=== PATIENT | female | born 1950 | race Caucasian/White ===

== ENCOUNTER 2018-02-02 14:20 | Emergency (ER) | payer MEDICARE, MEDICAID ==
[~2018-02-02] VITALS: Ht 157.5 cm; Wt 76.0 kg
[~2018-02-02 14:20] MED LIST: ATOR10TA PO; HYDR-569 PO; PHEN-716 PO; TRAZ-143 PO
[2018-02-02 15:18] LABS: BASOPHILS % (AUTO) 0.4 % (0-1); EOSINOPHILS # (AUTO) 0.2 X10'3 (0-0.9); EOSINOPHILS % (AUTO) 2.8 % (0-6); HEMATOCRIT 35.2 % (35.0-45.0); HEMOGLOBIN 12.3 g/dl (12.0-16.0); LYMPHOCYTES # (AUTO) 2.6 X10'3 (1.1-4.8); LYMPHOCYTES % (AUTO) 38.7 % (21-51); MEAN CORPUSCULAR HEMOGLOBIN 31.2 PG (27.0-31.0); MEAN CORPUSCULAR HGB CONC 34.9 % (33.0-36.5); MEAN CORPUSCULAR VOLUME 89.2 FL (78-98); MEAN PLATELET VOLUME 7.9 FL (7.4-10.4); MONOCYTES # (AUTO) 0.6 X10'3 (0-0.9); MONOCYTES % (AUTO) 8.3 % (2-12); NEUTROPHILS # (AUTO) 3.3 X10'3 (1.8-7.7); NEUTROPHILS % (AUTO) 49.8 % (42-75); PLATELET COUNT 251 X10'3 (140-440); RED BLOOD COUNT 3.95 X10'6 (4.20-5.60); RED CELL DISTRIBUTION WIDTH 12.9 % (11.5-14.5); WHITE BLOOD COUNT 6.7 X10'3 (4.5-11.0)
[2018-02-02] MEDS ORDERED: ipratropium/albuterol 3ml nebule NEB ONE (15:20)
[2018-02-02 15:32] LABS: D-DIMER 0.45 MG/L FEU (0-0.50)
[2018-02-02 15:46] LABS: ALANINE AMINOTRANSFERASE 25 U/L (12-78); ALBUMIN 3.6 G/DL (3.4-5.0); ALBUMIN/GLOBULIN RATIO 0.9 (1.1-1.5); ALKALINE PHOSPHATASE 87 IU/L (46-116); ANION GAP 10 (8-16); ASPARTATE AMINO TRANSFERASE 16 U/L (10-37); BILIRUBIN,TOTAL 0.4 MG/DL (0.1-1.0); BLOOD UREA NITROGEN 17 MG/DL (7-18); BUN/CREATININE RATIO 15.9 (6.6-38.0); CALCIUM 8.9 MG/DL (8.5-10.1); CHLORIDE 104 MMOL/L (99-107); CREATININE 1.07 MG/DL (0.40-0.90); GLUCOSE 119 MG/DL (70-104); POTASSIUM 3.7 MMOL/L (3.5-5.1); SODIUM 141 MMOL/L (135-145); TOTAL CARBON DIOXIDE 26.8 MMOL/L (24-32); TOTAL PROTEIN 7.8 G/DL (6.4-8.2); eGFR 51 ML/MIN
[2018-02-02] MEDS ORDERED: BENZ-38 PO (16:09)
[2018-02-02] MEDS ORDERED: PRED20TA PO (16:09)
[2018-02-02] MEDS ORDERED: predniSONE 20 mg tablet PO ONE (16:10)
[2018-02-02] MEDS ORDERED: LORazepam 1 MG tablet PO ONE (16:15)
[2018-02-02 16:36] VITALS: BP 131/79
== END 2018-02-02 16:39 | disposition home or self-care (01) ==
LOC: ER 14:20
DX: J44.1 Chronic obstructive pulmonary disease with (acute) exacerbation (principal); F17.210 Nicotine dependence, cigarettes, uncomplicated; Z90.49 Acquired absence of other specified parts of digestive tract; Z90.710 Acquired absence of both cervix and uterus; Z88.2 Allergy status to sulfonamides; Z56.0 Unemployment, unspecified
CPT/HCPCS: 36415; 71045; 80053; 83880; 85025; 85379; 94760; 99285; J7512

== ENCOUNTER 2019-04-17 10:52 | Emergency (ER) | payer MEDICARE, MEDICAID ==
[~2019-04-17] VITALS: Ht 157.5 cm; Wt 75.0 kg
[~2019-04-17 10:52] MED LIST changes: +CEPH500C5 PO; +HYDR-4383 PO; -HYDR-569 PO; +PANT-47 PO; -TRAZ-143 PO; +TRAZ-251 PO
[2019-04-17] MEDS ORDERED: famotidine/PF 10 mg/ml inj IV ONE (12:05)
[2019-04-17] MEDS ORDERED: normal saline 1000ML IV soln IVB ONE (12:05)
--- NOTE | 2019-04-17 12:18 | NUR ---
To CT via WC.
[2019-04-17 12:20] LABS: CLARITY,URINE SLIGHTLY CLOUDY (Clear); COLOR,URINE STRAW (Yellow); GLUCOSE, URINE NEGATIVE (Neg); KETONES,URINE NEGATIVE (Neg); LEUKOCYTE ESTERASE ,URINE NEGATIVE (Neg); NITRITES, URINE NEGATIVE (Neg); OCCULT BLOOD,URINE TRACE-INTACT (Neg); PH,URINE 5.5 (4.8-8.0); PROTEIN,URINE NEGATIVE (Neg); UA COLLECTION TYPE CLN CATCH MIDSTREAM; UROBILINOGEN,URINE 0.2 E.U/dL (0.2-1.0)
[2019-04-17 12:24] LABS: BASOPHILS # (AUTO) 0.1 X10'3 (0-0.2); BASOPHILS % (AUTO) 0.9 % (0-1); EOSINOPHILS # (AUTO) 0.1 X10'3 (0-0.9); EOSINOPHILS % (AUTO) 1.5 % (0-6); HEMATOCRIT 37.9 % (35.0-45.0); HEMOGLOBIN 12.8 g/dl (12.0-16.0); LYMPHOCYTES # (AUTO) 2.4 X10'3 (1.1-4.8); LYMPHOCYTES % (AUTO) 42.2 % (21-51); MEAN CORPUSCULAR HEMOGLOBIN 29.7 PG (27.0-31.0); MEAN CORPUSCULAR HGB CONC 33.8 g/dL (33.0-36.5); MEAN CORPUSCULAR VOLUME 87.7 FL (78-98); MEAN PLATELET VOLUME 9.1 FL (7.4-10.4); MONOCYTES # (AUTO) 0.4 X10'3 (0-0.9); MONOCYTES % (AUTO) 7.7 % (2-12); NEUTROPHILS # (AUTO) 2.7 X10'3 (1.8-7.7); NEUTROPHILS % (AUTO) 47.7 % (42-75); PLATELET COUNT 198 X10'3 (140-440); RED BLOOD COUNT 4.33 X10'6 (4.20-5.60); RED CELL DISTRIBUTION WIDTH 13.2 % (11.5-14.5); WHITE BLOOD COUNT 5.7 X10'3 (4.5-11.0)
[2019-04-17 12:34] LABS: SQUAMOUS EPITHELIAL CELL,UR MODERATE /LPF (FEW)
[2019-04-17 12:35] LABS: WBC,URINE 0-4 /HPF (0-4)
[2019-04-17 12:36] LABS: BACTERIA,URINE NONE SEEN /HPF (Neg); RBC,URINE 0-2 /HPF (0-2)
[2019-04-17 12:39] LABS: ALANINE AMINOTRANSFERASE 19 U/L (12-78); ALBUMIN 3.8 G/DL (3.4-5.0); ALBUMIN/GLOBULIN RATIO 1.2 (1.1-1.5); ALKALINE PHOSPHATASE 81 IU/L (46-116); ANION GAP 6 (8-16); ASPARTATE AMINO TRANSFERASE 18 U/L (10-37); BILIRUBIN,TOTAL 0.4 MG/DL (0.1-1.0); BLOOD UREA NITROGEN 18 MG/DL (7-18); BUN/CREATININE RATIO 15.1 (6.6-38.0); CHLORIDE 107 MMOL/L (99-107); CREATININE 1.19 MG/DL (0.40-0.90); GLUCOSE 94 MG/DL (70-104); LIPASE 106 U/L (73-393); POTASSIUM 3.8 MMOL/L (3.5-5.1); SODIUM 139 MMOL/L (135-145); TOTAL CARBON DIOXIDE 25.9 MMOL/L (24-32); eGFR 45 ML/MIN
[2019-04-17] MEDS ORDERED: mag hydrox/Alum hydrox/simeth 30ml oral suspension PO ONE (13:10)
[2019-04-17] MEDS ORDERED: LIDOcaine Viscous 15ml cup PO ONE (13:10)
[2019-04-17] MEDS ORDERED: ondansetron 4mg rapidly disintigrating tab PO STA (13:10)
[2019-04-17] MEDS ORDERED: FAMO-128 PO (13:50)
[2019-04-17] MEDS ORDERED: SUCR1TAB34 PO (13:50)
[2019-04-17 14:11] VITALS: BP 137/73
== END 2019-04-17 14:13 | disposition home or self-care (01) ==
LOC: ER 10:52
DX: R10.13 Epigastric pain (principal); Z90.49 Acquired absence of other specified parts of digestive tract; Z90.710 Acquired absence of both cervix and uterus; Z88.5 Allergy status to narcotic agent; Z88.2 Allergy status to sulfonamides; Z79.899 Other long term (current) drug therapy; Z56.0 Unemployment, unspecified
CPT/HCPCS: 36415; 74176; 80053; 81001; 83690; 85025; 93005; 96374; 99284; J3490; J7030

== ENCOUNTER 2022-05-01 20:15 | Emergency (ER) | payer MEDICARE, MEDICAID ==
[~2022-05-01] VITALS: Ht 157.5 cm; Wt 59.0 kg
[~2022-05-01 20:15] MED LIST changes: -CEPH500C5 PO; +FAMO-128 PO; +SUCR1TAB34 PO
[2022-05-01 21:13] LABS: BASOPHILS % (AUTO) 0.4 % (0-1); EOSINOPHILS % (AUTO) 0.7 % (0-6); HEMATOCRIT 34.1 % (35.0-45.0); HEMOGLOBIN 11.6 g/dl (12.0-16.0); LYMPHOCYTES # (AUTO) 0.7 X10'3 (1.1-4.8); LYMPHOCYTES % (AUTO) 12.8 % (21-51); MEAN CORPUSCULAR HEMOGLOBIN 30.7 PG (27.0-31.0); MEAN CORPUSCULAR HGB CONC 33.9 g/dL (33.0-36.5); MEAN CORPUSCULAR VOLUME 90.5 FL (78-98); MEAN PLATELET VOLUME 9.6 FL (7.4-10.4); MONOCYTES # (AUTO) 0.8 X10'3 (0-0.9); MONOCYTES % (AUTO) 13.9 % (2-12); NEUTROPHILS # (AUTO) 4.2 X10'3 (1.8-7.7); NEUTROPHILS % (AUTO) 72.2 % (42-75); PLATELET COUNT 163 X10'3 (140-440); RED BLOOD COUNT 3.76 X10'6 (4.20-5.60); WHITE BLOOD COUNT 5.8 X10'3 (4.5-11.0)
[2022-05-01] MEDS ORDERED: CefTRIAXone 2gm/NS 100ml IVPB 100 ML IV ONE (21:25)
[2022-05-01] MEDS ORDERED: CEPH-585 PO (21:27)
[2022-05-01 21:28] LABS: ALANINE AMINOTRANSFERASE 25 U/L (12-78); ALBUMIN 3.4 G/DL (3.4-5.0); ALKALINE PHOSPHATASE 59 IU/L (46-116); ANION GAP 12 (8-16); ASPARTATE AMINO TRANSFERASE 23 U/L (10-37); BILIRUBIN,TOTAL 0.3 MG/DL (0.1-1.0); BLOOD UREA NITROGEN 18 MG/DL (7-18); BUN/CREATININE RATIO 13.3 (6.6-38.0); CALCIUM 8.2 MG/DL (8.5-10.1); CHLORIDE 102 MMOL/L (99-107); CREATININE 1.35 MG/DL (0.40-0.90); GLUCOSE 133 MG/DL (70-104); LIPASE 153 U/L (73-393); POTASSIUM 3.8 MMOL/L (3.5-5.1); SODIUM 139 MMOL/L (135-145); TOTAL CARBON DIOXIDE 25.1 MMOL/L (24-32); TOTAL PROTEIN 6.7 G/DL (6.4-8.2); eGFR 39 ML/MIN
[2022-05-01] MEDS ORDERED: normal saline 1000ML IV soln IVB ONE (21:30)
[2022-05-01 21:49] LABS: CLARITY,URINE CLEAR (Clear); COLOR,URINE YELLOW (Yellow); GLUCOSE, URINE NEGATIVE (Neg); KETONES,URINE NEGATIVE (Neg); LEUKOCYTE ESTERASE ,URINE NEGATIVE (Neg); NITRITES, URINE NEGATIVE (Neg); OCCULT BLOOD,URINE SMALL (Neg); PROTEIN,URINE NEGATIVE (Neg); UROBILINOGEN,URINE 0.2 E.U/dL (0.2-1.0)
[2022-05-01 21:58] LABS: UA COLLECTION TYPE CLN CATCH MIDSTREAM
[2022-05-01 22:04] LABS: BACTERIA,URINE NONE SEEN /HPF (Neg); RBC,URINE 0-2 /HPF (0-2); SQUAMOUS EPITHELIAL CELL,UR FEW /LPF (FEW); WBC,URINE NONE SEEN /HPF (0-4)
[2022-05-01] MEDS ORDERED: ketorolac trometh. 30mg/ml inj. IV ONE (22:15)
[2022-05-01 23:53] VITALS: BP 141/76
== END 2022-05-01 23:57 | disposition home or self-care (01) ==
LOC: ER 20:15
DX: N39.0 Urinary tract infection, site not specified (principal); R10.84 Generalized abdominal pain; R50.9 Fever, unspecified; F41.9 Anxiety disorder, unspecified; F32.A Depression, unspecified; F17.210 Nicotine dependence, cigarettes, uncomplicated; Z87.01 Personal history of pneumonia (recurrent); Z87.440 Personal history of urinary (tract) infections; Z90.49 Acquired absence of other specified parts of digestive tract; Z90.710 Acquired absence of both cervix and uterus; Z56.0 Unemployment, unspecified; Z88.5 Allergy status to narcotic agent; Z88.2 Allergy status to sulfonamides; Z79.2 Long term (current) use of antibiotics; Z79.899 Other long term (current) drug therapy
CPT/HCPCS: 36415; 74176; 80053; 81001; 83690; 84145; 85025; 93005; 96365; 96375; 99285; J0696; J1885; J7030; A4353

== ENCOUNTER 2025-08-17 06:26 | Inpatient (IN) | payer BC, MEDICAID ==
[~2025-08-17] VITALS: Ht 157.5 cm; Wt 63.6 kg
[2025-08-17 10:54] LABS: LEUKOCYTE ESTERASE ,URINE MODERATE (Neg); NITRITES, URINE POSITIVE (Neg); OCCULT BLOOD,URINE SMALL (Neg)
[2025-08-17 10:59] LABS: MEAN PLATELET VOLUME 8.9 FL (7.4-10.4); RED CELL DISTRIBUTION WIDTH 13.8 % (11.5-14.5)
[2025-08-17 11:01] LABS: UA COLLECTION TYPE CLN CATCH MIDSTREAM
[2025-08-17 11:05] LABS: CREATININE 1.39 MG/DL (0.40-0.90); TOTAL CARBON DIOXIDE 28.2 MMOL/L (24-32); eCRCL 27 ML/MIN; eGFR 37 ML/MIN
[2025-08-17 11:09] LABS: SQUAMOUS EPITHELIAL CELL,UR FEW /LPF (FEW)
[2025-08-17 11:10] LABS: RENAL CELLS, URINE FEW /HPF
--- NOTE | 2025-08-17 11:14 | Physician Documentation ---
History of Present Illness ~ Chief Complaint: Ear Pain Stated Complaint: RIGHT EAR DISCOMFORT Time Seen by MD: 10:16 Primary Medical Doctor: Yue SHEN Patient is seen today with complaints of ringing in her right ear but also states she has had a urinary tract infection for three months and most recently was treated about a month ago with IV antibiotics with a PICC line and states as soon as she stopped the antibiotics her symptoms returned immediately. Patient states the ringing in her ears started a couple of days ago and she also has some associated vertigo. Patient denies any chest pain or shortness of breath or fevers or body aches but states that she has had some chills. Patient has no other concern or complaint at this time. Medication Reconciliation Allergies: Coded Allergies: codeine (Verified Allergy, Intermediate, 08/17/25) morphine (Unverified Allergy, Intermediate, N/V, 08/17/25) Sulfa (Sulfonamide Antibiotics) (Verified Allergy, Unknown, 08/17/25) Uncoded Allergies: TAPE (Allergy, Unknown, 01/15/15) Scheduled Atorvastatin Calcium (Lipitor), 1 TAB PO DAILY, (Reported) Famotidine (Pepcid), 1 TAB PO Q12H Pantoprazole Sodium (PROTONIX tablet), 1 TAB PO DAILY Sucralfate (Carafate), 1 TAB PO Q6H Trazodone HCl (Trazodone HCl), 1 TAB PO HS, (Reported) Scheduled PRN Hydrocodone/Acetaminophen ([place] 5-325 Tablet), 1 TAB PO Q6H PRN for pain Phenazopyridine HCl (Pyridium), 1 TAB PO Q8H PRN for pain, (Reported) Past Medical History Past Medical History: *ENT*, Pneumonia, UTI, Anxiety, Depression Past Surgical History: cholecystectomy, hysterectomy Alcohol Use: None Drug Use: none Lives with: Family Lives In: Home Occupation: unemployed Review of Systems Constitutional: Denies: chills, fever, weakness Eyes: Denies: pain, blurred vision ENT: Denies: ear pain, nose pain, throat pain, mouth pain Respiratory: Denies: cough, shortness of breath Cardiovascular: Denies: chest pain, palpitations Gastrointestinal: Denies: abdominal pain, nausea, vomiting Genitourinary: Denies: burning, dysuria Female Genitalia: Denies: vaginal discharge, pelvic pain Neurological: Denies: headache, dizziness Musculoskeletal: Denies: pain, swelling Integumentary: Denies: rash, lesions Allergic/Immunologic: Denies: hives, itching Hematologic/Lymphatic: Denies: no symptoms reported Psychiatric: Denies: depression, anxiety Physical Exam Vital Signs: Temperature: 98.4, Source: Temporal, Heart Rate: 100, Respiratory Rate: 18, BP: 102/78, Pulse Oximetry: 98, Weight: 63.640 Oxygen Flow Rate: 0 Physical Exam General: Awake and Alert, no acute distress. Patient appears ill. HEENT: Patient does have excess cerumen in the ears bilaterally worse on the right side however I am able to see pass the cerumen and I do appreciate cone of light with dull TMs bilaterally. Conjunctiva pink, Sclera clear, Mucus Membranes moist. Neck: Supple without masses and tenderness. Resp: Unlabored. Lungs clear to auscultation bilaterally. Heart: Regular Rate and rhythm, normal S1 and S2 without murmur, rub or gallop. Abdomen: Soft and non tender no organomegaly Extremities: No cyanosis,clubbing or edema. Skin: Warm and Dry. Progress Results/Orders Results/Orders Orders - EUGENIO PEREZ PAC Cbc/Diff (08/17/25 10:25) BMP (08/17/25 10:25) Procalcitonin (08/17/25 10:25) Lacticsepsis (08/17/25 10:25) Ua W/Microscopic, Cult If Ind (08/17/25 10:20) Completed Orders - EUGENIO PEREZ Meclizine Tablets (Antivert Tablet) (08/17/25 10:27) Medications Received in ER Medications (Trade) Dose Ordered Sig/Charles Route PRN Reason Start Time Stop Time Status Last Admin Dose Admin (Antivert tablet) 25 mg ONCE STAT PO 08/17/25 10:27 08/17/25 10:28 DC 08/17/25 10:42 25 MG Vital Signs 08/17/25 06:27 Temp 98.4 Pulse 100 Resp 18 B/P (MAP) 102/78 Pulse Ox 98 O2 Flow Rate 0 Laboratory Tests Test 08/17/25 10:20 08/17/25 10:40 Urine Specimen Description Cln catch midstream Urine Color Yellow Urine Clarity Cloudy Urine pH 5.5 Urine Specific [place] 1.025 Urine Protein Negative Urine Glucose (UA) Negative Urine Ketones Negative Urine Occult Blood Small Urine Nitrite Positive H Urine Bilirubin Negative Urine Urobilinogen 0.2 Urine Leukocyte Esterase Moderate H Volume Urine Centrifuged 10 ml Urine Comment CBC Comment Chemistry Comments Medical Decision Making Findings Patient is seen today with complaints of ringing in her right ear but also states she has had a urinary tract infection for three months and most recently was treated about a month ago with IV antibiotics with a PICC line and states as soon as she stopped the antibiotics her symptoms returned immediately. Patient states the ringing in her ears started a couple of days ago and she also has some associated vertigo. Patient denies any chest pain or shortness of breath or fevers or body aches but states that she has had some chills. Patient has no other concern or complaint at this time. Patient did have urinalysis that showed positive for leukocytes and nitrites. Patient will be started on IV antibiotics and admitted and hospitalist was consulted. Was also given meclizine 25 mg by mouth and she will continue Debrox for excess cerumen. Departure Disposition: ADMITTED INPATIENT Admitted to Inpatient Unit: to hospitalist Admission Level of Care: Med/Surg Impression: Primary Impression: UTI (urinary tract infection) Qualified Codes: N30.00 - Acute cystitis without hematuria Condition: Fair Discharge Instructions: Earache, Adult Additional Instructions: Patient did have urinalysis that showed positive for leukocytes and nitrites. Patient will be started on IV antibiotics and admitted and hospitalist was consulted. Was also given meclizine 25 mg by mouth and she will continue Debrox for excess cerumen. Referrals: NO PRIMARY CARE PROVIDER (PCP) Signature Scribe Signature: No scribe Attestation: No scribe EUGENIO PEREZ PAC Aug 17, 2025 11:14
[2025-08-17] MEDS: CefTRIAXone/D5W-Rocephin 1gm 50 ML IV STA (13:43)
[2025-08-17] MEDS ORDERED: magnesium sulf-water 4G/100mL 100 ML IV PRN (13:55)
[2025-08-17] MEDS ORDERED: potassium Cl 40MEQ/1/2NS 520ml 520 ML IV PRN (13:55)
[2025-08-17] MEDS ORDERED: metoclopramide 5 mg/ml inj IV PRN (13:55)
[2025-08-17] MEDS ORDERED: ondansetron/PF 4mg/2ml inj IV PRN (13:55)
[2025-08-17] MEDS ORDERED: magnesium hydroxide 30ml (MOM) UD suspension PO PRN (13:55)
[2025-08-17] MEDS ORDERED: magnesium sulf-water 2g/50mL 50 ML IV PRN (13:55)
[2025-08-17] MEDS ORDERED: mag hydrox/Alum hydrox/simeth 30ml oral suspension PO PRN (13:55)
[2025-08-17] MEDS ORDERED: normal saline 1000ml 1,000 ML IV SCH (13:55)
[2025-08-17] MEDS ORDERED: potassium Cl 20 mEq SR tablet PO PRN ×2 (13:55)
[2025-08-17] MEDS ORDERED: magnesium Cl slow-release 64mg tablet PO PRN (13:55)
[2025-08-17] MEDS ORDERED: morphine 4 MG/ML inj SYRINge IV PRN (13:55)
[2025-08-17] MEDS: normal saline 1000ml 1,000 ML IV ONE (14:40)
[2025-08-17 15:00] VITALS: BP 181/64; PULSE 100; RESP 16; TEMP 98.1; O2SAT 96
--- NOTE | 2025-08-17 15:00 | RADIOLOGY REPORT ---
CHEST RADIOGRAPH Indication: suspection of pnemonia Technique: Single frontal view of the chest was obtained COMPARISON: None FINDINGS: Lines and Tubes: None Lungs: Subtle opacity in the left lower lobe. Pleura: No effusion. No pneumothorax. Cardiomediastinal contours: Unremarkable Bones: Unremarkable IMPRESSION: Subtle opacity in the left lung base may represent atelectasis or pneumonia.
--- NOTE | 2025-08-17 15:46 | HISTORY AND PHYSICAL-Residence ---
History & Physical Providers to CC Resident Creating Document: GRACE PASTOR, RES ~ History of Present Illness Primary Medical Doctor: Yue Reason for Admit\Complaint: vertigo and lightheadness History of Present Illness A 75 years old female came to the ER with chief complaint of spinning sensation of head that started yesterday morning , gradually progressive associated with ringing sound in right ear and lightheadedness, dizziness when she tries to get out of the bed. Patient denies syncope, fall, shortness of breath, fever, body aches but states that she had some chills. Patient endorses that she had multiple urinary tract infections and the most recent was 1 month ago treated with IV antibiotics with a PICC line. Allergies: Coded Allergies: codeine (Verified Allergy, Intermediate, 08/17/25) morphine (Unverified Allergy, Intermediate, N/V, 08/17/25) Sulfa (Sulfonamide Antibiotics) (Verified Allergy, Unknown, 08/17/25) Uncoded Allergies: TAPE (Allergy, Unknown, 01/15/15) Home Medications Home Medications Active Carafate (Sucralfate) 1 Gm Tablet 1 Tab PO Q6H 30 Days Pepcid (Famotidine) 20 Mg Tablet 1 Tab PO Q12H 30 Days PROTONIX tablet (Pantoprazole Sodium) 40 Mg Tablet.dr 1 Tab PO DAILY [place] 5-325 Tablet (Hydrocodone/Acetaminophen) 1 Each Tablet 1 Tab PO Q6H PRN Reported Trazodone HCl 50 Mg Tablet 1 Tab PO HS Lipitor (Atorvastatin Calcium) 10 Mg Tablet 1 Tab PO DAILY Pyridium (Phenazopyridine HCl) 200 Mg Tablet 1 Tab PO Q8H PRN Past Medical History Past Medical History Multiple UTI Anxiety Depression Past Surgical History Surgical History Comment cholecystectomy hysterectomy Family History Family History: Patient reports no known family medical history. Past Social History Social History Comment Stopped smoking cigarates Smoking: Non-Smoker, Cigarettes Alcohol Use: None Drug Use: None Lives with: Family Lives In: Home Occupation: unemployed ROS ROS Constitutional: Reports chills, No fever, dizziness, weight gain or loss, night sweats Eyes: No pain, erythema, discharge, blurring of vision ENT: No sore throat, epistaxis, tinnitus Cardiovascular:No chest pain, palpitations, syncope, lower extremity edema, paroxysmal nocturnal dyspnea Respiratory: No Shortness of breath and cough, No hemoptysis. Gastrointestinal:No Abdominal pain, vomiting,nausea and melena. Normal appetite. No constipation,diarrhea, hematemesis, Musculoskeletal: No swelling or edema of extremities. Integumentary: No change in skin, hair, nails. No swelling, bruising, abrasions Neurologic: No weakness,No headache, neck pain, numbness or tingling of the extremities, Psychiatric: No delusions, depression, loss of interest in normal activity or change in sleep pattern, hallucinations, suicidal ideations Endocrine: No fatigue, no weakness. polydipsia, polyuria, change in appetite, heat or cold intolerance, sweating, dry skin Hematological: No bleeding, petechiae, bruising Allergies: No asthma or urticaria Constitutional: Denies: chills, fever, weakness Eyes: Denies: pain, blurred vision ENT: Denies: ear pain, nose pain, throat pain, mouth pain Respiratory: Denies: cough, shortness of breath Cardiovascular: Denies: chest pain, palpitations Gastrointestinal: Denies: abdominal pain, nausea, vomiting Genitourinary: Denies: burning, dysuria Neurological: Denies: headache, dizziness Musculoskeletal: Denies: pain, swelling Integumentary: Denies: rash, lesions Allergic/Immunologic: Denies: hives, itching Hematologic/Lymphatic: Denies: no symptoms reported Psychiatric: Denies: depression, anxiety Exam Vitals: Vital Signs Date Time Temp Pulse Resp B/P (MAP) Pulse Ox O2 Delivery O2 Flow Rate FiO2 08/17/25 15:41 69 08/17/25 15:00 98.1 16 181/64 (103) 96 Room Air 08/17/25 11:31 0 General: Awake , alert and oriented to time,place, person, patient appears ill, acute distress HEENT: Patient have excessive cerumen in bilateral ears. Atraumatic, normocephalic, PERRLA, EOMI, anicteric sclera ; pink conjunctiva, moist mucos membranes Neck: Trachea midline. Supple, normal range of motion, no JVD, no lymphadenopathy Chest and Respiratory: Equal breath sounds bilaterally, no tachypnea, wheezing, ronchi,rubs .Chest wall is symmetric and without deformity. Cardiac: S1, S2 heard,Regular rate and rhythm, no murmurs/ rub or gallop. Abdomen: Soft, No tenderness, No guarding or rigidity, Macario's sign negative. normal bowel sounds x4 quadrant, no hepatosplenomegaly MSK: Range of motion of all extremities are normal. There is no joint pain or joint swelling or joint erythema. There is no muscle pain or tenderness or swelling. Extremities: warm, well-perfused, No cyanosis, clubbing, 2+ pulses felt Neurological: Speech is clear, alert, and oriented x 4. No sensory. Cranial nerves II-XII intact. Unable to perform motor examination due to dizziness and lightheaded. Skin: Warm and dry Psychiatry: Affect and mood are normal Diagnostic Data Last Recorded Lab Results: 08/17/25 1040 08/17/25 1040 Advance Care Planning Advanced Care plannin - 30 Minutes Additional Plan Peripheral Vertigo (BPPV, vestibular neuritis, labyrinthitis, menieres disease ) Patient has spinning sensation, tinnitus in right ear, bilateral hearing loss using hearing aids, dizziness, lightheadedness and nausea > 24 hrs No nystagmus Patient has no history of migraine Cerebellar signs are intact. CT head without contrast to rule out central vertigo Debrox for excess cerumen Started on Meclizine 25 mg t.i.d. p.r.n. IV Zofran 4 mg p.r.n. Q4 H Fall precautions Continue telemetry monitoring Acute cystitis without hematuria Urinalysis showed positive for leukocytes and nitrates, esterase Follow up with urine culture WBC is in normal limits, follow up with lactate and procalcitonin Started on Rocephin 1 g IV daily Acute kidney injury Patient creatinine is 1.39, GFR is 37, BUN creatinine ratio is 18.7 Follow up with urine lytes Started on IV normal saline at the rate of 60 mL/hour Code status: Full code DVT prophylaxis : Heparin Nutrition: Regular diet Physical therapy: ordered Line/tube: PIV Analgesia/sedation: [place] Disposition: Continue medical management Resident attestation The above note has been reviewed and supervised by a senior resident PGY3 Patient was seen, examined and discussed with the attending physician Heriberto Pastor MD Internal Medicine Resident, PGY 1 Date of Service: Aug 17, 2025 Billing Provider: RONALD SHAH MD Common Visit Codes: 93107-[id number] INP/OBS CARE (HIGH) Secondary Visit Codes: [id number] CARE PLAN 30 MINUTES GRACE PASTOR, RES Aug 17, 2025 15:46 RONALD SHAH MD Aug 19, 2025 06:58
[2025-08-17] MEDS: hydrALAZINE 20mg/ml inj. IV ONE (16:04)
[2025-08-17] MEDS: CefTRIAXone/D5W-Rocephin 1gm 50 ML IV SCH (16:05)
[2025-08-17] MEDS: ondansetron/PF 4mg/2ml inj IV ONE (16:05)
[2025-08-17] MEDS ORDERED: VENL37.59 PO (16:29)
[2025-08-17 17:14] LABS: CREATININE 1.30 MG/DL (0.40-0.90); PHOSPHORUS 2.7 MG/DL (2.3-4.5); PRO BRAIN NATRIURETIC PEPTIDE 169 PG/ML (0-450); TOTAL CARBON DIOXIDE 25.5 MMOL/L (24-32); eCRCL 29 ML/MIN; eGFR 40 ML/MIN
[2025-08-17 17:47] VITALS: BP 136/53; PULSE 69; RESP 11; TEMP 97.8; O2SAT 98
[2025-08-17 18:00] VITALS: BP 136/53; PULSE 69; RESP 11; TEMP 97.8; O2SAT 98
[2025-08-17 18:11] LABS: APTT 23 SECONDS (22-32); INR 1.1 INR
--- NOTE | 2025-08-17 18:55 | CARDIOLOGY REPORT ---
APPROVED REPORT EXAM: Comprehensive 2D, Doppler, and color-flow Echocardiogram. Patient Location: 40[address] Blood Pressure: 181/67 mmHg Heart Rate: 83 bpm Rhythm: SINUS Indications SYNCOPE DIZZINESS It Security Administrator: none Previous echo: 08/10/10 [facility] (EF 65-70%, mild MR, mild TR) 2D Dimensions RVDd 2.8 cm LA Diam 4.1 cm IVSd 0.6 (0.7-1.1cm) LVDd 3.8 cm PWd 1.0 (0.7-1.1cm) IVSs 0.9 (0.8-1.2cm) LVDs 2.5 (2.5-4.0cm) PWs 1.2 (0.8-1.2cm) LVOT Diameter 2.00 (1.8-2.4cm) LVEF(%) 63.5 (>50%) IVC 14.08 mm FS (%) 33.9 % SV 40.3 ml CO 3.0 L/min M-Mode Dimensions Left Atrium(MM) 3.20 (2.5-4.0cm) Aortic Root 2.95 (2.2-3.7cm) Aortic Cusp Exc 2.08 (1.5-2.0cm) MV EPSS 0.3 (<0.5cm) Biplane 2D LA Volumes LA ESV Index 17.00 mL/m2 Aortic Valve AoV Peak [place]. 230.3 cm/s AoV VTI 45.3 cm AO Peak GR. 21.2 mmHg AO Mean GR. 10 mmHg LVOT VTI 30.24 cm LVOT Peak [place]. 132.8 cm/s COMPA(VTI)/BSA 2.10 cm2/m2 COMPA (VTI) 2.10 cm2 Mitral Valve MV E Velocity 96.9 cm/s MV Peak Gr. 4 mmHg MV DECEL TIME 308 ms MV A Velocity 120.5 cm/s MV PHT 48 ms E/A Ratio 0.8 MVA (PHT) 4.58 cm2 MV VMax 100.2 cm/s TDI Medial E' P. V 8.58 cm/s E/Medial E' 11.3 Tricuspid Valve TR P. Velocity 259 cm/s RAP ESTIMATE 10 mmHg TR Peak Gr. 27 mmHg RVSP 37 mmHg Pulmonary Vein S1 Velocity 83.7 cm/s D2 Velocity 57.4 cm/s PVa Velocity 38.4 cm/s PVa Duration 128 msec LEFT VENTRICLE Normal LV size and wall thickness. Overall systolic function is normal. LVEF is 60-65%. RIGHT VENTRICLE RV is normal size and function. RVSP is estimated at 37 mmHg. ATRIA LA size is normal. AORTIC VALVE Trileaflet AV appears mildly sclerotic without stenosis or insufficiency. MITRAL VALVE Mild MV annular calcification without stenosis. Trace regurgitation. TRICUSPID VALVE TV appears structurally normal with mild regurgitation. PULMONIC VALVE Normal PV without stenosis, physiologic insufficiency. GREAT VESSELS The aortic root is normal in size. The IVC is normal in size and collapses greater than 50% with inspiration. PERICARDIUM Normal pericardium. No effusion. Other Information Study Quality: Adequate Conclusion Normal LV size and wall thickness. Overall systolic function is normal. LVEF is 60-65%. RV is normal size and function. RVSP is estimated at 37 mmHg. LA size is normal. Trileaflet AV appears mildly sclerotic without stenosis or insufficiency. Mild MV annular calcification without stenosis. Trace regurgitation. TV appears structurally normal with mild regurgitation. Normal pericardium. No effusion.
[2025-08-17] MEDS: K and/or MAG REPLACEMENT MC SCH (19:51)
[2025-08-17] MEDS: docusate sod 100mg capsule PO SCH (20:00)
[2025-08-17] MEDS: HYDROcodone/acetaminophen 5mg/325mg tablet PO PRN (20:06)
[2025-08-17] MEDS: carbamide peroxide 15ml bottle EACH EAR SCH (20:06)
[2025-08-17] MEDS: normal saline 1000ml 1,000 ML IV SCH (20:06)
--- NOTE | 2025-08-17 20:06 | RADIOLOGY REPORT ---
CLINICAL HISTORY: to rule central vertigo TECHNIQUE: Helical scanning was performed of the head from the skull base to the vertex. Multiplanar reconstructions were performed. This exam was performed according to our departmental dose optimization program. Up-to-date CT equipment and radiation dose reduction techniques are utilized as appropriate. CTDI 47.4 DLP 868 COMPARISON: None FINDINGS: There is no evidence for acute intracranial hemorrhage, acute ischemic changes, mass, mass effect, or extra-axial fluid collection. There is no hydrocephalus or midline shift. There is no effacement of the cerebral sulci and basal subarachnoid cisterns. The grigsby-white matter differentiation is well maintained. The imaged paranasal sinuses are clear. IMPRESSION: NO ACUTE INTRACRANIAL ABNORMALITY SEEN.
[2025-08-17] MEDS: heparin, porcine 5000 units/ml vial SQ SCH (20:07)
[2025-08-18 05:47] LABS: MEAN PLATELET VOLUME 9.4 FL (7.4-10.4); RED CELL DISTRIBUTION WIDTH 13.4 % (11.5-14.5)
[2025-08-18 06:00] VITALS: BP 119/50; PULSE 61; RESP 14; TEMP 97.6; O2SAT 98
[2025-08-18 06:03] LABS: CHOL/HDL RATIO 4.6 (0.00-4.99); CREATININE 1.50 MG/DL (0.40-0.90); LDL CHOLESTEROL 122 MG/DL (50-100); TOTAL CARBON DIOXIDE 26.7 MMOL/L (24-32); eCRCL 25 ML/MIN; eGFR 34 ML/MIN
[2025-08-18 08:00] VITALS: BP_SYST 106; BP_SYST 117; BP_SYST 122; BP_DIAS 40; BP_DIAS 50; BP_DIAS 66; PULSE 63; PULSE 67; PULSE 77
[2025-08-18 10:00] VITALS: BP 125/67; PULSE 67; RESP 12; TEMP 98; O2SAT 99
--- NOTE | 2025-08-18 16:52 | PROGRESS NOTE- Residence ---
Progress Note - Resident Providers to CC Resident Creating Document: GRACE PASTOR RES ~ Antibiotic Timeout Antibiotic Ordered?: Yes Subjective Patient was seen at bedside. Patient still continues to have ringing sound in right ear, dizziness, lightheadedness but her abdominal pain improved. Objective Vital Signs Date Time Temp Pulse Resp B/P (MAP) Pulse Ox O2 Delivery O2 Flow Rate FiO2 08/18/25 11:42 15 08/18/25 08:00 Room Air 08/18/25 08:00 67 106/40 (62) 77 122/66 (84) 63 117/50 (72) 08/17/25 20:00 0.0 08/17/25 18:00 97.8 98 Result Diagram: 08/18/2545408/18/25 045 Awake , alert and oriented to time,place, person, patient appears ill, not in distress HEENT: Patient have excessive cerumen in bilateral ears. Atraumatic, normocephalic, PERRLA, EOMI, anicteric sclera ; pink conjunctiva, moist mucos membranes Neck: Trachea midline. Supple, normal range of motion, no JVD, no lymphadenopathy Chest and Respiratory: Equal breath sounds bilaterally, no tachypnea, wheezing, ronchi,rubs .Chest wall is symmetric and without deformity. Cardiac: S1, S2 heard,Regular rate and rhythm, no murmurs/ rub or gallop. Abdomen: Soft, No tenderness, No guarding or rigidity, Macario's sign negative. normal bowel sounds x4 quadrant, no hepatosplenomegaly MSK: Range of motion of all extremities are normal. There is no joint pain or joint swelling or joint erythema. There is no muscle pain or tenderness or swelling. Extremities: warm, well-perfused, No cyanosis, clubbing, 2+ pulses felt Neurological: Speech is clear, alert, and oriented x 4. No sensory. Cranial nerves II-XII intact. Unable to perform motor examination due to dizziness and lightheaded. Skin: Warm and dry Psychiatry: Affect and mood are normal Coagulation Studies Laboratory Tests Test 08/17/25 17:45 Prothrombin Time 10.9 SECONDS (9.0-12.0) INR International Normalized Ratio 1.1 INR Activated Partial Thromboplast Time 23 SECONDS (22-32) Coagulation Comments Plan Plan Acute cystitis without hematuria Urinalysis showed positive for leukocytes and nitrates, esterase Follow up with urine culture WBC is in normal limits, follow up with lactate and procalcitonin Started on Rocephin 1 g IV daily 08/18/2025: Urine culture showed Gram-negative rods, awaiting sensitivity White count, lactic acid and procalcitonin are in normal limits Discontinue Rocephin and started on IV meropenem q.12h as per ID recommendation Midline was placed Peripheral Vertigo most likely unilateral, right-sided BPPV Patient has spinning sensation, tinnitus in right ear, bilateral hearing loss using hearing aids, dizziness, lightheadedness and nausea > 24 hrs No nystagmus Patient has no history of migraine Cerebellar signs are intact. Patient denies diplopia, slurred speech, limb weakness and ataxia CT head without contrast to rule out central vertigo Debrox for excess cerumen Started on Meclizine 25 mg t.i.d. p.r.n. IV Zofran 4 mg p.r.n. Q4 H Fall precautions 08/18/2025: Orthostatic vitals are negative Telemetry showed normal sinus rhythm and rate, discontinue telemetry CT head showed no acute intracranial abdominal Echocardiogram showed ejection fraction of 65%, mild MR and mild TR Acute kidney injury Patient creatinine is 1.39, GFR is 37, BUN creatinine ratio is 18.7 Follow up with urine lytes Started on IV normal saline at the rate of 60 mL/hour 08/18/2025: Creatinine is 1.50 today Continue IV normal saline 60 mL/hour Follow up with urine lytes Depression Continuing home medication venlafaxine Code status: Full code DVT prophylaxis : Heparin Nutrition: Regular diet Physical therapy: Awaiting recommendations Line/tube: PIV Analgesia/sedation: [place] Disposition: Continue medical management Resident attestation The above note has been reviewed and supervised by a senior resident PGY3 Patient was seen, examined and discussed with the attending physician Heriberto Pastor MD Internal Medicine Resident, PGY 1 Date of Service: Aug 18, 2025 Billing Provider: RONALD SHAH MD Common Visit Codes: [id number] INP/OBS CARE(HIGH) GRACE PASTOR, RES Aug 18, 2025 16:52 RONALD SHAH MD Aug 19, 2025 06:59
[2025-08-18] MEDS: venlafaxine XR 37.5mg cap (Q24H) PO SCH (17:15)
[2025-08-18 18:00] VITALS: BP 121/50; PULSE 60; RESP 16; TEMP 98.9; O2SAT 97
[2025-08-18 20:00] VITALS: BP_SYST 116; BP_SYST 128; BP_SYST 135; BP_DIAS 45; BP_DIAS 65; BP_DIAS 69; PULSE 70; PULSE 75; PULSE 78; PULSE 92; RESP 14; O2SAT 97
[2025-08-18] MEDS: meropenem inj 500 MG in normal saline 100ml IV soln 100 ML IV SCH (21:25)
[2025-08-18 22:00] VITALS: BP_SYST 116; BP_SYST 128; BP_SYST 135; BP_DIAS 45; BP_DIAS 65; BP_DIAS 69; PULSE 70; PULSE 75; PULSE 92; RESP 14; TEMP 97.8; O2SAT 97
[2025-08-19 06:00] VITALS: BP 116/47; PULSE 64; RESP 14; TEMP 97.5; O2SAT 96
[2025-08-19 06:06] LABS: MEAN PLATELET VOLUME 9.6 FL (7.4-10.4); RED CELL DISTRIBUTION WIDTH 13.6 % (11.5-14.5)
[2025-08-19 06:15] LABS: CREATININE 1.46 MG/DL (0.40-0.90); TOTAL CARBON DIOXIDE 27.1 MMOL/L (24-32); eCRCL 26 ML/MIN; eGFR 35 ML/MIN
[2025-08-19 08:00] VITALS: BP_SYST 128; BP_SYST 129; BP_SYST 139; BP_DIAS 53; BP_DIAS 60; BP_DIAS 63; PULSE 69; PULSE 70; PULSE 71
[2025-08-19 11:00] VITALS: BP 140/92; PULSE 75; RESP 16; TEMP 98.1; O2SAT 100
[2025-08-19] MEDS: phenazopyridine 100mg tablet PO SCH (14:36)
--- NOTE | 2025-08-19 17:30 | PROGRESS NOTE- Residence ---
Progress Note - Resident Providers to CC Resident Creating Document: GRACE PASTOR, RES ~ Central Line/PICC still needed: N\A Stewart-Non Protocol Stewart Indications Met/Not Met: F/C Indications Not Met Antibiotic Timeout Antibiotic Ordered?: Yes Subjective Patient was seen at bedside. Patient still continues to have ringing sound in right ear and pain in the lower abdomen. patient endorses that her dizziness, lightheadedness improved slightly. Patient denies nausea and vomiting. Objective Vital Signs Date Time Temp Pulse Resp B/P (MAP) Pulse Ox O2 Delivery O2 Flow Rate FiO2 08/19/25 14:38 12 08/19/25 11:00 98.1 75 140/92 (108) 100 08/19/25 08:00 Room Air 08/17/25 20:00 0.0 Result Diagram: 08/19/25 0502 08/19/25 0502 Awake , alert and oriented to time,place, person, patient appears ill, not in distress HEENT: Patient have excessive cerumen in bilateral ears. Atraumatic, normocephalic, PERRLA, EOMI, anicteric sclera ; pink conjunctiva, moist mucos membranes Neck: Trachea midline. Supple, normal range of motion, no JVD, no lymphadenopathy Chest and Respiratory: Equal breath sounds bilaterally, no tachypnea, wheezing, ronchi,rubs .Chest wall is symmetric and without deformity. Cardiac: S1, S2 heard,Regular rate and rhythm, no murmurs/ rub or gallop. Abdomen: Soft, mild tenderness in lower abdomen, No guarding or rigidity, Macario's sign negative. normal bowel sounds x4 quadrant, no hepatosplenomegaly MSK: Range of motion of all extremities are normal. There is no joint pain or joint swelling or joint erythema. There is no muscle pain or tenderness or swelling. Extremities: warm, well-perfused, No cyanosis, clubbing, 2+ pulses felt Neurological: Speech is clear, alert, and oriented x 4. No sensory. Cranial nerves II-XII intact. Unable to perform motor examination due to dizziness and lightheaded. Skin: Warm and dry Psychiatry: Affect and mood are normal Coagulation Studies Laboratory Tests Test 08/17/25 17:45 Prothrombin Time 10.9 SECONDS (9.0-12.0) INR International Normalized Ratio 1.1 INR Activated Partial Thromboplast Time 23 SECONDS (22-32) Coagulation Comments Plan Plan Acute cystitis without hematuria Urinalysis showed positive for leukocytes and nitrates, esterase Follow up with urine culture WBC is in normal limits, follow up with lactate and procalcitonin Started on Rocephin 1 g IV daily 08/18/2025: Urine culture showed Gram-negative rods, awaiting sensitivity White count, lactic acid and procalcitonin are in normal limits Discontinue Rocephin and started on IV meropenem q.12h as per ID recommendation Midline was placed 08/19/2025: Urine culture showed Gram-negative rods, awaiting sensitivity Continue IV meropenem q.12h through midline Pain management with Pyridium 100 mg p.o. t.i.d. Peripheral Vertigo most likely unilateral, right-sided BPPV Patient has spinning sensation, tinnitus in right ear, bilateral hearing loss using hearing aids, dizziness, lightheadedness and nausea > 24 hrs No nystagmus Patient has no history of migraine Cerebellar signs are intact. Patient denies diplopia, slurred speech, limb weakness and ataxia CT head without contrast to rule out central vertigo Debrox for excess cerumen Started on Meclizine 25 mg t.i.d. p.r.n. IV Zofran 4 mg p.r.n. Q4 H Fall precautions 08/18/2025: Orthostatic vitals are negative Telemetry showed normal sinus rhythm and rate, discontinue telemetry CT head showed no acute intracranial abdominal Echocardiogram showed ejection fraction of 65%, mild MR and mild TR 08/19/2025: Mild improvement in spinning sensation, dizziness Debrox for excess cerumen Started on Meclizine 25 mg t.i.d. p.r.n. IV Zofran 4 mg p.r.n. Q4 H Awaiting for Physical therapy recommendation Acute kidney injury, possible CKD stage 3b Patient creatinine is 1.39, GFR is 37, BUN creatinine ratio is 18.7 Follow up with urine lytes Started on IV normal saline at the rate of 60 mL/hour 08/18/2025: Creatinine is 1.50 today Continue IV normal saline 60 mL/hour Follow up with urine lytes 08/19/2025: Creatinine is 1.46 today Monitor BMP levels Depression Continuing home medication venlafaxine Code status: Full code DVT prophylaxis : Heparin Nutrition: Regular diet Physical therapy: Awaiting recommendations Line/tube: PIV Analgesia/sedation: Summit/Pyridium Disposition: Continue medical management Resident attestation The above note has been reviewed and supervised by a senior resident PGY3 Patient was seen, examined and discussed with the attending physician Heriberto Pastor MD Internal Medicine Resident, PGY 1 Date of Service: Aug 19, 2025 Billing Provider: RONALD SHAH MD Common Visit Codes: [id number] INP/OBS CARE(HIGH) GRACE PASTOR, RES Aug 19, 2025 17:30 RONALD SAHH MD Aug 20, 2025 06:11
[2025-08-19 18:30] VITALS: BP 134/62; PULSE 63; RESP 16; TEMP 98.1; O2SAT 98
[2025-08-19 20:00] VITALS: BP_SYST 135; BP_SYST 137; BP_SYST 143; BP_DIAS 48; BP_DIAS 55; BP_DIAS 70
[2025-08-19 22:00] VITALS: BP 134/60; PULSE 72; RESP 14; TEMP 97.4; O2SAT 96
[2025-08-20 05:59] LABS: MEAN PLATELET VOLUME 9.3 FL (7.4-10.4); RED CELL DISTRIBUTION WIDTH 13.5 % (11.5-14.5)
[2025-08-20 06:00] VITALS: BP 132/45; PULSE 76; RESP 14; TEMP 98; O2SAT 96
[2025-08-20 06:15] LABS: CREATININE 1.23 MG/DL (0.40-0.90); TOTAL CARBON DIOXIDE 26.2 MMOL/L (24-32); eCRCL 31 ML/MIN; eGFR 42 ML/MIN
[2025-08-20 08:00] VITALS: BP_SYST 127; BP_SYST 141; BP_SYST 149; BP_DIAS 63; BP_DIAS 66; BP_DIAS 69; PULSE 66; PULSE 67; PULSE 75; RESP 12
[2025-08-20 10:00] VITALS: BP 136/54; PULSE 58; RESP 16; TEMP 97.8; O2SAT 99
[2025-08-20] MEDS ORDERED: CEFP200T13 PO (12:45)
[2025-08-20] MEDS ORDERED: MECL-302 PO (12:46)
[2025-08-20] MEDS ORDERED: CARB15DR91 RIGHT EAR (12:46)
--- NOTE | 2025-08-20 17:45 | DISCHARGE SUMMARY-Residence ---
Discharge Summary Providers to CC Resident Creating Document: GRACE ROLLINS VIMAL, RES ~ Discharge Summary Admission Diagnosis: Recurrent UTI, Vertigo Hospital Course DATE OF ADMISSION: 08/17/2025 DATE OF DISCHARGE: 08/20/2025 Discharge Diagnosis\Comment: Complicated UTI due to E coli Multidrug resistant Peripheral Vertigo most likely unilateral, right-sided BPPV Acute kidney injury, possible CKD stage 3b Hypernatremia, not clinically significant Depression Atelectasis Ruled out pneumonia Operations\Procedures: None Consultants: None Complications: None Condition on DC: Stable New Medications: Carbamide Peroxide (Debrox) 6.5 % Drops 5 DROP RIGHT EAR Q12H, #15 ML 0 Refills Cefpodoxime Proxetil (Vantin) 200 Mg Tablet 200 MG PO BID for 7 Days, #14 TAB Meclizine HCl (Meclizine HCl) 25 Mg Tablet 1 TAB PO Q8H for 30 Days, #90 TAB Continued Medications: Venlafaxine Hcl XR* (Effexor XR*) 37.5 Mg Cap.sr.12h 1 CAP PO DAILY for 30 Days, #30 CAP Discharge Summary: History of present illness: A 75 years old female came to the ER with chief complaint of spinning sensation of head that started yesterday morning , gradually progressive associated with ringing sound in right ear and lightheadedness, dizziness when she tries to get out of the bed. Patient denies syncope, fall, shortness of breath, fever, body aches but states that she had some chills. Patient had [id number] burning type of lower abdominal pain, increased frequency of urination. Patient endorses that she had multiple urinary tract infections and the most recent was 1 month ago treated with IV antibiotics with a PICC line. Course in the hospital: Patient had [id number] burning type of lower abdominal pain, increased frequency of urination.Urinalysis showed positive for leukocytes and nitrates, esterase. Patient has history of recurrent multiple UTIs. Dr. Vazquez , the infectious doctor was consulted . Started on IV meropenem through midline and pain management with Pyridium 100 mg p.o. t.i.d.. Follow up urine culture showed E coli which is sensitive to cefepime, ceftriaxone, meropenem ,Zosyn and resistant to ciprofloxacin, gentamicin, levofloxacin, tobramycin, Bactrim.Patient was discharged with p.o. Vantin for 7 days as per ID recommendation. Patient had spinning sensation, tinnitus in right ear, bilateral hearing loss using hearing aids, dizziness, lightheadedness and nausea > 24 hrs. Patient denies diplopia, slurred speech, limb weakness and ataxia. Patient has no history of migraine. Cerebellar signs are intact. CT head without contrast was normal, ruled out central vertigo. On Examination Patient have excessive cerumen in bilateral ears. Patient was negative for orthostatic vitals. Patient was treated with Debrox eardrops, meclizine and IV Zofran p.r.n. Patient improved significantly during the course of hospitalization and stable. Physical therapy recommended discharge to home. Patient had Mild WAYLON, CKD stage 3b improved with IV fluids. Imaging: Chest x-ray: Subtle opacity in the left lung base may represent atelectasis or pneumonia. Echocardiogram: Normal LV size and wall thickness. Overall systolic function is normal. LVEF is 60-65%. RV is normal size and function. RVSP is estimated at 37 mmHg. LA size is normal. Trileaflet AV appears mildly sclerotic without stenosis or insufficiency. Mild MV annular calcification without stenosis. Trace regurgitation. TV appears structurally normal with mild regurgitation. Normal pericardium. No effusion. CT head: NO ACUTE INTRACRANIAL ABNORMALITY SEEN. Vital Signs Date Time Temp Pulse Resp B/P (MAP) Pulse Ox O2 Delivery O2 Flow Rate FiO2 08/20/25 10:00 97.8 58 16 136/54 (81) 99 Room Air 08/17/25 20:00 0.0 Laboratory Tests Test 08/19/25 05:02 08/20/25 05:10 White Blood Count 5.5 X10'3 5.8 X10'3 Red Blood Count 3.54 X10'6 3.46 X10'6 Hemoglobin 10.4 g/dl 10.3 g/dl Hematocrit 31.1 % 30.1 % Mean Corpuscular Volume 87.9 FL 87.1 FL Mean Corpuscular Hemoglobin 29.5 PG 29.9 PG Mean Corpuscular Hemoglobin Concent 33.6 g/dL 34.3 g/dL Red Cell Distribution Width 13.6 % 13.5 % Platelet Count 173 X10'3 164 X10'3 Mean Platelet Volume 9.6 FL 9.3 FL Neutrophils (%) (Auto) 39.4 % 46.7 % Lymphocytes (%) (Auto) 46.5 % 39.9 % Monocytes (%) (Auto) 9.2 % 8.9 % Eosinophils (%) (Auto) 3.7 % 3.8 % Basophils (%) (Auto) 1.2 % 0.7 % Neutrophils # (Auto) 2.2 X10'3 2.7 X10'3 Lymphocytes # (Auto) 2.6 X10'3 2.3 X10'3 Monocytes # (Auto) 0.5 X10'3 0.5 X10'3 Eosinophils # (Auto) 0.2 X10'3 0.2 X10'3 Basophils # (Auto) 0.1 X10'3 0.0 X10'3 CBC Comment Sodium Level 146 MMOL/L 145 MMOL/L Potassium Level 4.3 MMOL/L 3.9 MMOL/L Chloride Level 113 MMOL/L 112 MMOL/L Carbon Dioxide Level 27.1 MMOL/L 26.2 MMOL/L Anion Gap 6 7 Blood Urea Nitrogen 20 MG/DL 22 MG/DL Creatinine 1.46 MG/DL 1.23 MG/DL Estimated GFR/1.73 m2 35 ML/MIN 42 ML/MIN BUN/Creatinine Ratio 13.7 17.9 Glucose Level 88 MG/DL 93 MG/DL Calcium Level 8.5 MG/DL 8.3 MG/DL Albumin 2.9 G/DL 2.9 G/DL Chemistry Comments Physical exam at discharge: Awake , alert and oriented to time,place, person, patient appears ill, not in distress HEENT: Patient have excessive cerumen in bilateral ears. Atraumatic, normocephalic, PERRLA, EOMI, anicteric sclera ; pink conjunctiva, moist mucos membranes Neck: Trachea midline. Supple, normal range of motion, no JVD, no lymphadenopathy Chest and Respiratory: Equal breath sounds bilaterally, no tachypnea, wheezing, ronchi,rubs .Chest wall is symmetric and without deformity. Cardiac: S1, S2 heard,Regular rate and rhythm, no murmurs/ rub or gallop. Abdomen: Soft, mild tenderness in lower abdomen, No guarding or rigidity, Macario's sign negative. normal bowel sounds x4 quadrant, no hepatosplenomegaly MSK: Range of motion of all extremities are normal. There is no joint pain or joint swelling or joint erythema. There is no muscle pain or tenderness or swelling. Extremities: warm, well-perfused, No cyanosis, clubbing, 2+ pulses felt Neurological: Speech is clear, alert, and oriented x 4. No sensory. Cranial nerves II-XII intact. Skin: Warm and dry Psychiatry: Affect and mood are normal Discharge instructions: Patient was advised to follow up with PCP in view of peripheral vertigo in 1 week. Advised to follow up with urologist for recurrent multiple (MDR )urine tract infection. Patient was advised to take Vantin p.o. 100 mg b.i.d. for 7 days Advised to take meclizine and Debrox eardrops Advised to take Pyridium for pain during urination In Case of any worsening symptoms, call 911 or go to ER immediately. *Problems/Diagnosis: (1) Acute cystitis without hematuria (2) Peripheral vertigo (3) Acute kidney injury (4) Stage 3b chronic kidney disease (5) Depression Total Time Spent on D/C: Up to 30 Minutes Date of Service: Aug 20, 2025 Billing Provider: RONALD SHAH MD Common Visit Codes: 47063-VUV/OBS DISCH DAY >30min GRACE ROLLINS, RES Aug 20, 2025 17:35 RONALD SHAH MD Aug 21, 2025 06:29
[2025-08-20] MEDS ORDERED: MEROPENEM 500MG/50ML-NS IVPB 50 ML IV SCH (20:00)
== END 2025-08-20 14:35 | disposition home or self-care (01) | DRG 690 ==
LOC: ER 06:27 → ED HOLD 11:34 → ORTHO 4S 15:12
PROVIDERS: ADMIT Internal Medicine; ATTEND Internal Medicine
PROC: 05HF33Z Insertion of Infusion Device into Left Cephalic Vein, Percutaneous Approach (ICD-10-PCS; principal; 2025-08-18)
PROC: B54NZZA Ultrasonography of Left Upper Extremity Veins, Guidance (ICD-10-PCS; 2025-08-18)
DX: N30.00 Acute cystitis without hematuria (principal); E87.0 Hyperosmolality and hypernatremia; J98.11 Atelectasis; N17.9 Acute kidney failure, unspecified; H81.11 Benign paroxysmal vertigo, right ear; F41.9 Anxiety disorder, unspecified; F32.A Depression, unspecified; N18.32 Chronic kidney disease, stage 3b; Z88.2 Allergy status to sulfonamides; Z88.5 Allergy status to narcotic agent; Z90.49 Acquired absence of other specified parts of digestive tract; Z90.710 Acquired absence of both cervix and uterus; Z79.899 Other long term (current) drug therapy
CPT/HCPCS: 36410; 36415; 70450; 71045; 76937; 80048; 80053; 80061; 81001; 83036; 83605; 83735; 83880; 83930; 84100; 84145; 84484; 85025; 85610; 85730; 87077; 87081; 87088; 87186; 93306; 96365; 97116; 97161; 97530; 99285; C1751; G0378; J0360; J0696; J1644; J2185; J2405; J7030; J8597